=== PATIENT | female | born 1985 | race Caucasian/White ===

== ENCOUNTER → 2018-03-13 | Outpatient (CLI) | payer OTHER ==
[~2018-03-13] MED LIST: INSDET100 SQ; INSUASPI; INSULANI; LAMO25; ONDA4ODT MM; PRENZ; RXONDA4ODT MM; RXPROM25 PO; VENL25; [UNRECOGNIZED DRUG - OTHER]
[2018-03-16 14:07] LABS: HPV 16 Negative (Negative); HPV 18 Negative (Negative); HPV OTHER HR TYPES Negative (Negative)
== END | disposition home or self-care (01) ==
LOC: LAB SHORT 13:10 → LAB 13:10
PROVIDERS: Nurse Practitioner Women's Health
DX: Z12.4 Encounter for screening for malignant neoplasm of cervix (principal); Z91.89 Other specified personal risk factors, not elsewhere classified
CPT/HCPCS: 87624; G0123